=== PATIENT | female | born 1995 | race American Indian/Alaskan Native ===

== ENCOUNTER 2021-04-02 17:29 | Emergency (ER) | payer MEDICAID ==
--- NOTE | 2021-04-02 18:16 | EDM.PDOC ---
ED HPI GENERAL MEDICAL PROBLEM - General Stated Complaint: GLASS IN R FOOT Time Seen by Provider: 04/02/21 18:10 Source of Information: Reports: Patient History Limitations: Reports: Intoxication - History of Present Illness INITIAL COMMENTS - FREE TEXT/NARRATIVE: Patient presents to the ED with her child for glass in the heel of her right foot for two days. She states she stepped on " shiny" glass and it was embedded in the heel of the right foot. She bought a tweezer to get it out but thinks she didn't get it out. wants it removed. This happened two days ago, no bleeding, no drainage, and walking on it without pain. Past Medical History - Past Health History Medical/Surgical History: Denies Medical/Surgical History Social & Family History - Tobacco Use Tobacco Use Status *Q: Current Some Day Tobacco User - Recreational Drug Use Recreational Drug Use: Yes ED ROS GENERAL - Review of Systems Review Of Systems: Comprehensive ROS is negative, except as noted in HPI. Musculoskeletal: Reports: Foot Pain (right heel) ED EXAM, GENERAL - Physical Exam Exam: See Below Reason Not Obtained: pateint refused Free Text/Narrative:: patient was asked to remove her sock to sit on the end of the table so I could look at the bottom of her foot. refused to do this, lifts her leg in the air briefly but only takes the sock 1/2 off the foot. In this motion I am able to briefly see the heel of the right foot. No bleeding redness or obvious foreign body seen. When asked again to allow evaluation of the foot without the sock, she replaced the entire sock on the foot and put her boot on stating that she changed her mind and would " come back when I can take my sock off my foot" Exam Limited By: No Limitations General Appearance: Alert, No Apparent Distress, Other (well kept) Eye Exam: Bilateral Eye: Other (pinpoint pupils) Course - Re-Assessments/Exams Free Text/Narrative Re-Assessment/Exam: attempted to get the patient to remove her sock and put her foot off the end of the table in order to look at her foot. She declined and asked to leave. refused to remove the sock. Exam was not preformed and patient left voluntarily without examination. ambulated out of the department without a limp wearing her sock and boot. Appeared to be under the influence of a substance, but displays capacity to make decisions, offered clinic follow up 04/02/21 18:09 Departure - Departure Time of Disposition: 18:07 Disposition: Left Without Being Seen 07 Condition: Good Clinical Impression: Foot pain, right - Discharge Information Additional Instructions: you were offered evaluation in the ER but refused to allow the provider to look at your foot. Follow up with the clinic
[2021-04-02 18:21] VITALS: BP 106/49; PULSE 89
== END 2021-04-02 18:13 | disposition left against medical advice (07) ==
LOC: VM.ED 17:29
DX: M79.671 Pain in right foot (principal); Z72.0 Tobacco use; Z53.21 Procedure and treatment not carried out due to patient leaving prior to being seen by health care provider
CPT/HCPCS: 99283

== ENCOUNTER 2021-06-13 19:54 | Emergency (ER) | payer MEDICAID | END 2021-06-13 20:25 | disposition other institution (70) | LOC: VM.ED 19:54 | DX: S00.81XA Abrasion of other part of head, initial encounter (principal); S40.811A Abrasion of right upper arm, initial encounter; Y04.0XXA Assault by unarmed brawl or fight, initial encounter | CPT/HCPCS: 99283; 99284 ==

== ENCOUNTER 2021-07-17 19:28 | Emergency (ER) | payer MEDICAID ==
[2021-07-17] MEDS ORDERED: Magnesium Citrate Solution 296 ML Bottle PO ONE (19:35)
== END 2021-07-17 19:52 | disposition home or self-care (01) ==
LOC: VM.ED 19:28
DX: K59.01 Slow transit constipation (principal)
CPT/HCPCS: 99283